=== PATIENT | female | born 1970 | race Caucasian/White ===

== ENCOUNTER 2018-12-05 22:01 | Emergency (ER) | payer MEDICAID ==
[2018-12-05] MEDS ORDERED: Acetaminophen 500 MG Tab PO ONE (22:51)
--- NOTE | 2018-12-05 22:55 | EDM.PDOC ---
ED HPI GENERAL MEDICAL PROBLEM - General Chief Complaint: Lower Extremity Injury/Pain Stated Complaint: HURT LEG Time Seen by Provider: 12/05/18 22:35 Source of Information: Reports: Patient History Limitations: Reports: No Limitations - History of Present Illness INITIAL COMMENTS - FREE TEXT/NARRATIVE: 48-year-old female who tends to get a sore leg on the right side when driving, drove lots of miles today and this evening she has a sore right groin. She laid down for a while after taking a hot bath, when she could barely get out of bed she thought she should get it checked out. She has no erythema, definite trauma , swelling, and she has not taken anything for pain. No fevers or chills, no urinary symptoms. Onset: Gradual (Over the course of today, worse this evening) Location: Reports: Lower Extremity, Right Right Upper Leg Pain Score (Numeric/FACES): 7 - Related Data Allergies Allergy/AdvReac Type Severity Reaction Status Date / Time cefuroxime [From Ceftin] Allergy Hives Verified 12/05/18 22:37 esomeprazole [From Nexium] Allergy Cannot Verified 12/05/18 22:37 Remember flaxseed Allergy Wheezing Verified 12/05/18 22:37 ibuprofen Allergy Itching Verified 12/05/18 22:37 Sulfa (Sulfonamide Allergy Hives Verified 12/05/18 22:37 Antibiotics) Home Meds: Home Meds Albuterol [Ventolin HFA] 2 puff INH Q4H PRN 08/30/18 [History] Multivitamin [Multi-Vitamin Daily] 1 tab PO DAILY 08/30/18 [History] Past Medical History HEENT History: Reports: Cataract Respiratory History: Reports: Bronchitis, Recurrent Gastrointestinal History: Reports: GERD, Helicobacter Pylori 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 History: Reports: Fracture Endocrine/Metabolic History: Reports: Obesity/BMI 30+ Dermatologic History: Reports: Cellulitis - Past Surgical History HEENT Surgical History: Reports: Cataract Surgery Female Surgical History: Reports: Tubal Ligation Social & Family History - Tobacco Use Smoking Status *Q: Current Every Day Smoker Years of Tobacco use: 23 Packs/Tins Daily: 0.5 - Caffeine Use Caffeine Use: Reports: Soda - Recreational Drug Use Recreational Drug Use: No Review of Systems - Review of Systems Review Of Systems: See Below Constitutional: Denies: Fever Respiratory: Denies: Shortness of Breath Cardiovascular: Denies: Chest Pain GI/Abdominal: Denies: Abdominal Pain 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: Reports: Leg Pain Skin: Reports: No Symptoms Neurological: Reports: No Symptoms. Denies: Paresthesia ED EXAM, GENERAL - Physical Exam Exam: See Below Exam Limited By: No Limitations General Appearance: Alert, No Apparent Distress Head: Atraumatic Respiratory/Chest: No Respiratory Distress GI/Abdominal: Non-Tender Extremities: Other (She has some pain with passive internal and external rotation of the right hip, some palpation tenderness of the right groin but no hernia, mass, or edema.) Course - Vital Signs Last Recorded V/S: Last Vital Signs Temp 95.5 F 12/05/18 22:36 Pulse 82 12/05/18 22:36 Resp 16 12/05/18 22:36 BP 118/73 12/05/18 22:36 Pulse Ox 97 12/05/18 22:36 - Orders/Labs/Meds Meds: Medications Discontinued Medications Generic Name Dose Route Start Last Admin Trade Name Brett PRN Reason Stop Dose Admin Acetaminophen 1,000 mg 12/05/18 22:51 12/05/18 23:03 Tylenol Extra Strength PO 12/05/18 22:52 Not Given ONETIME ONE - Re-Assessments/Exams Free Text/Narrative Re-Assessment/Exam: 12/05/18 22:53 Recommended anti-inflammatories but apparently she is allergic to ibuprofen and naproxen. I offered her a shot of ketorolac which she refused. She was given 1000 mg of oral Tylenol, encouraged to avoid heat to the area for the next 2 days and increase activity as tolerated. If not improving satisfactorily in 2-3 days recheck with her primary provider for physical therapy consultation. 12/06/18 06:05 Patient left before the acetaminophen could be given. Departure - Departure Time of Disposition: 23:03 Disposition: Home, Self-Care 01 Condition: Good Clinical Impression: Strain of groin Qualifiers: Encounter type: initial encounter Laterality: right Qualified Code(s): S76.211A - Strain of adductor muscle, fascia and tendon of right thigh, initial encounter - Discharge Information Instructions: Tendinitis, [id number] Referrals: Amanda Ball MD [Primary Care Provider] - Forms: ED Department Discharge Care Plan Goals: Continue with a regular dose of acetaminophen over the next 48 hours, increase activity as tolerated and recheck in 2-3 days if not improving satisfactorily.
== END 2018-12-05 23:03 | disposition home or self-care (01) ==
LOC: JP.ED 22:01
DX: S39.011A Strain of muscle, fascia and tendon of abdomen, initial encounter (principal); Z88.8 Allergy status to other drugs, medicaments and biological substances; Z88.2 Allergy status to sulfonamides; E66.9 Obesity, unspecified; F17.210 Nicotine dependence, cigarettes, uncomplicated; X50.1XXA Overexertion from prolonged static or awkward postures, initial encounter
CPT/HCPCS: 99283

== ENCOUNTER 2018-12-31 09:37 | Emergency (ER) | payer MEDICAID ==
--- NOTE | 2018-12-31 10:23 | EDM.PDOC ---
ED HPI GENERAL MEDICAL PROBLEM - General Chief Complaint: Upper Extremity Injury/Pain Stated Complaint: LEFT SHOULDER PAIN Time Seen by Provider: 12/31/18 10:05 Source of Information: Reports: Patient, RN History Limitations: Reports: No Limitations - History of Present Illness INITIAL COMMENTS - FREE TEXT/NARRATIVE: 48 yo female with 4-5 days of L arm pain worse with use of the arm. No self tx. Has not been to the clinic. Thinks its from walking her dog. 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 (see below) (none) - Related Data Allergies Allergy/AdvReac Type Severity Reaction Status Date / Time cefuroxime [From Ceftin] Allergy Hives Verified 12/31/18 10:04 esomeprazole [From Nexium] Allergy Cannot Verified 12/31/18 10:04 Remember flaxseed Allergy Wheezing Verified 12/31/18 10:04 ibuprofen Allergy Itching Verified 12/31/18 10:04 Sulfa (Sulfonamide Allergy Hives Verified 12/31/18 10:04 Antibiotics) Home Meds: Home Meds Albuterol [Ventolin HFA] 2 puff INH Q4H PRN 08/30/18 [History] Multivitamin [Multi-Vitamin Daily] 1 tab PO DAILY 08/30/18 [History] Past Medical History HEENT History: Reports: Cataract Respiratory History: Reports: Bronchitis, Recurrent Gastrointestinal History: Reports: GERD, Helicobacter 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: Reports: 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 Endocrine/Metabolic History: Reports: Obesity/BMI 30+ Dermatologic History: Reports: Cellulitis - Past Surgical History HEENT Surgical History: Reports: Cataract Surgery Female Surgical History: Reports: Tubal Ligation Social & Family History - Tobacco Use Smoking Status *Q: Former Smoker Used Tobacco, but Quit: Yes Month/Year Tobacco Last Used: 2 - Caffeine Use Caffeine Use: Reports: Soda Review of Systems - Review of Systems Review Of Systems: See Below Constitutional: Reports: No Symptoms Eyes: Reports: No Symptoms 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: Reports: Arm Pain (L arm) Skin: Reports: No Symptoms Neurological: Reports: No Symptoms ED EXAM, GENERAL - Physical Exam Exam: See Below Exam Limited By: No Limitations General Appearance: Alert, WD/WN, No Apparent Distress Back Exam: Normal Inspection Extremities: Normal Inspection, Normal Range of Motion, No Pedal Edema, Arm Pain (L lateral arm, at bottom of deltoid. No pain with olecranon percussion. ) . No: Pedal Edema Neurological: Alert, Oriented, CN II-XII Intact, Normal Cognition, No Motor/ Sensory Deficits Psychiatric: Normal Affect, Normal Mood Skin Exam: Warm, Dry, Intact, Normal Color, No Rash Course - Vital Signs Last Recorded V/S: Last Vital Signs Temp 36.2 C 12/31/18 10:09 Pulse 61 12/31/18 10:09 Resp 14 12/31/18 10:09 BP 123/85 12/31/18 10:09 Pulse Ox 97 12/31/18 10:09 Departure - Departure Time of Disposition: 10:25 Disposition: Home, Self-Care 01 Condition: Good Clinical Impression: Muscle strain of left upper arm Qualifiers: Encounter type: initial encounter Qualified Code(s): S46.912A - Strain of unspecified muscle, fascia and tendon at shoulder and upper arm level, left arm , initial encounter - Discharge Information *PRESCRIPTION DRUG MONITORING PROGRAM REVIEWED*: No *COPY OF PRESCRIPTION DRUG MONITORING REPORT IN PATIENT FOSTER: No Instructions: Muscle Strain, [id number] Referrals: Amanda Ball MD [Primary Care Provider] - Additional Instructions: Wear sling for support. Use your R arm for walking your dog. Take ibuprofen and/ or acetaminophen as needed for pain relief. F/U with physical therapy. If PT does not help, then see your regular doctor.
== END 2018-12-31 10:52 | disposition home or self-care (01) ==
LOC: EEVIPCON 09:37 → JP.ED 09:37
DX: S46.912A Strain of unspecified muscle, fascia and tendon at shoulder and upper arm level, left arm, initial encounter (principal); K21.9 Gastro-esophageal reflux disease without esophagitis; Z88.8 Allergy status to other drugs, medicaments and biological substances; Z79.899 Other long term (current) drug therapy; Z87.891 Personal history of nicotine dependence; X50.9XXA Other and unspecified overexertion or strenuous movements or postures, initial encounter
CPT/HCPCS: 99283

== ENCOUNTER 2019-01-14 21:31 | Emergency (ER) | payer MEDICAID ==
--- NOTE | 2019-01-14 22:29 | EDM.PDOC ---
ED HPI GENERAL MEDICAL PROBLEM - General Chief Complaint: Eye Problems Stated Complaint: LEFT EYE--BLOODSHOT Time Seen by Provider: 01/14/19 22:26 Source of Information: Reports: Patient, RN Notes Reviewed History Limitations: Reports: No Limitations - History of Present Illness INITIAL COMMENTS - FREE TEXT/NARRATIVE: 40-year-old female presents to the emergency department today with a red area to her left eye she's not sure how this happens been there for about 24 hours she thinks she may have injured herself when taking out her contacts no complaints of vision - Related Data Allergies Allergy/AdvReac Type Severity Reaction Status Date / Time cefuroxime [From Ceftin] Allergy Hives Verified 12/31/18 10:04 esomeprazole [From Nexium] Allergy Cannot Verified 12/31/18 10:04 Remember flaxseed Allergy Wheezing Verified 12/31/18 10:04 ibuprofen Allergy Itching Verified 12/31/18 10:04 stevioside [From Stevia] Allergy Wheezing Verified 01/14/19 22:09 Sulfa (Sulfonamide Allergy Hives Verified 12/31/18 10:04 Antibiotics) Home Meds: Home Meds Albuterol [Ventolin HFA] 2 puff INH Q4H PRN 08/30/18 [History] Multivitamin [Multi-Vitamin Daily] 1 tab PO DAILY 08/30/18 [History] [place]-3S/DHA/Epa/Fish Oil/D3 [Fish Oil Gummies] 2 tab PO TID 01/14/19 [History] Past Medical History HEENT History: Reports: Allergic Rhinitis, Cataract, Impaired Vision, Otitis Media Cardiovascular History: Reports: High Cholesterol Respiratory History: Reports: Bronchitis, Recurrent Gastrointestinal History: Reports: GERD, 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 History: Reports: Fracture Endocrine/Metabolic History: Reports: Obesity/BMI 30+ Dermatologic History: Reports: Cellulitis, Eczema - Infectious Disease History Infectious Disease History: Reports: Chicken Pox, Helicobacter Pylori - Past Surgical History HEENT Surgical History: Reports: Cataract Surgery Female Surgical History: Reports: Tubal Ligation Social & Family History - Tobacco Use Smoking Status *Q: Current Some Day Smoker Years of Tobacco use: 20 Packs/Tins Daily: 0.1 - Caffeine Use Caffeine Use: Reports: Soda - Recreational Drug Use Recreational Drug Use: Yes Drug Use in Last 12 Months: No ED ROS GENERAL - Review of Systems Review Of Systems: See Below Constitutional: Reports: No Symptoms HEENT: Denies: Eye Discharge, Eye Pain, Vision Change ED EXAM GENERAL W FULL EYE - Physical Exam Exam: See Below Exam Limited By: No Limitations General Appearance: Alert, WD/WN, No Apparent Distress Eye Exam: Right Eye: Normal Inspection, Left Eye: Other (Subconjunctival hemorrhage), Bilateral Eye: EOMI, PERRL Eyelids: Bilateral: Normal Appearance Conjunctiva & Sclera: Right: Normal Appearance, Left: Subconjuctival Hemorrhage Cornea Exam: Left: Examined with Flourescein, Bilateral: Normal Appearance Extraocular Movements: Bilateral: Intact Course - Vital Signs Last Recorded V/S: Last Vital Signs Temp 96.4 F 01/14/19 22:12 Pulse 63 01/14/19 22:12 Resp 16 01/14/19 22:12 BP 129/86 01/14/19 22:12 Pulse Ox 97 01/14/19 22:12 Departure - Departure Time of Disposition: 22:28 Disposition: Home, Self-Care 01 Condition: Good Clinical Impression: Subconjunctival hemorrhage of left eye - Discharge Information Referrals: Amanda Ball MD [Primary Care Provider] - Additional Instructions: Symptomatic care as needed follow-up with eye care provider in 2 weeks if no improvement - Assessment/Plan Plan: Assessment Acuity = acute Site and laterality = subconjunctival hemorrhage left Etiology = probably related to trauma Manifestations = none Location of injury = Home Lab values = none Plan Reassurance and symptomatically care follow-up with eye care provider in 2 weeks if no improvement This note was dictated using [employer] voice recognition software please call with any questions on syntax or grammar.
== END 2019-01-14 22:36 | disposition home or self-care (01) ==
LOC: JP.ED 21:31
DX: H11.32 Conjunctival hemorrhage, left eye (principal); F17.210 Nicotine dependence, cigarettes, uncomplicated; Z91.018 Allergy to other foods; Z88.6 Allergy status to analgesic agent; Z88.2 Allergy status to sulfonamides; Z98.49 Cataract extraction status, unspecified eye; Z98.51 Tubal ligation status
CPT/HCPCS: 99283

== ENCOUNTER 2019-01-26 23:25 | Emergency (ER) | payer MEDICAID ==
--- NOTE | 2019-01-27 00:04 | EDM.PDOC ---
ED HPI GENERAL MEDICAL PROBLEM - General Chief Complaint: ENT Problem Stated Complaint: SINUS ISSUE Time Seen by Provider: 01/26/19 23:59 Source of Information: Reports: Patient History Limitations: Reports: No Limitations - History of Present Illness INITIAL COMMENTS - FREE TEXT/NARRATIVE: 48-year-old female with a cough and cold for the last 3 or 4 days, developing some sinus pressure. No fevers or chills. She is concerned of a sinus infection. She is a smoker. 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 (see below) Other Treatments INTELLIGENCE MANAGER: Unknown Sinus Pain Score (Numeric/FACES): 6 - Related Data Allergies Allergy/AdvReac Type Severity Reaction Status Date / Time cefuroxime [From Ceftin] Allergy Hives Verified 01/26/19 23:45 esomeprazole [From Nexium] Allergy Cannot Verified 01/26/19 23:45 Remember flaxseed Allergy Wheezing Verified 01/26/19 23:45 ibuprofen Allergy Itching Verified 01/26/19 23:45 stevioside [From Stevia] Allergy Wheezing Verified 01/26/19 23:45 Sulfa (Sulfonamide Allergy Hives Verified 01/26/19 23:45 Antibiotics) Home Meds: Home Meds Albuterol [Ventolin HFA] 2 puff INH Q4H PRN 08/30/18 [History] Multivitamin [Multi-Vitamin Daily] 1 tab PO DAILY 08/30/18 [History] [place]-3S/DHA/Epa/Fish Oil/D3 [Fish Oil Gummies] 2 tab PO TID 01/14/19 [History] Fluticasone Propionate [Flonase Allergy Relief] 1 ml NS ASDIRECTED 01/26/19 [ History] Past Medical History HEENT History: Reports: Allergic Rhinitis, Cataract, Impaired Vision, Otitis Media Cardiovascular History: Reports: High Cholesterol Respiratory History: Reports: Bronchitis, Recurrent Gastrointestinal History: Reports: GERD, Helicobacter 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: Reports: 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 Endocrine/Metabolic History: Reports: Obesity/BMI 30+ Dermatologic History: Reports: Cellulitis, Eczema - Infectious Disease History Infectious Disease History: Reports: Chicken Pox - Past Surgical History HEENT Surgical History: Reports: Cataract Surgery Female Surgical History: Reports: Tubal Ligation Social & Family History - Tobacco Use Smoking Status *Q: Unknown Ever Smoked - Caffeine Use Caffeine Use: Reports: Coffee, Soda - Recreational Drug Use Recreational Drug Use: No ED ROS ENT - Review of Systems Review Of Systems: See Below Constitutional: Denies: Fever, Chills HEENT: Reports: Other (Ears are itching). Denies: Throat Pain Respiratory: Reports: Cough. Denies: Sputum GI/Abdominal: Denies: Nausea, Vomiting ED EXAM, ENT - Physical Exam Exam: See Below Exam Limited By: No Limitations General Appearance: Alert, No Apparent Distress Ears: Normal TMs Mouth/Throat: Normal Inspection Head: No: Facial Tenderness Respiratory/Chest: No Respiratory Distress, Lungs Clear, Other (Frequent dry cough) Course - Vital Signs Last Recorded V/S: Last Vital Signs Temp 98.1 F 01/27/19 00:16 Pulse 80 01/27/19 00:16 Resp 16 01/27/19 00:16 BP 148/83 H 01/27/19 00:16 Pulse Ox 97 01/27/19 00:16 - Re-Assessments/Exams Free Text/Narrative Re-Assessment/Exam: 01/27/19 00:05 Reassured the patient that she has a viral cold which should run its course. If she worsens she can get rechecked. Departure - Departure Time of Disposition: 00:18 Disposition: Home, Self-Care 01 Condition: Good Clinical Impression: Viral URI with cough - Discharge Information Instructions: Viral Respiratory Infection, [id number] Referrals: Amanda Ball MD [Primary Care Provider] - Forms: ED Department Discharge Care Plan Goals: Rest, fluids, and increase activity as tolerated. Recheck early next week if not improving satisfactorily.
== END 2019-01-27 00:20 | disposition home or self-care (01) ==
LOC: JP.ED 23:25
DX: J06.9 Acute upper respiratory infection, unspecified (principal); E78.00 Pure hypercholesterolemia, unspecified; Z88.8 Allergy status to other drugs, medicaments and biological substances; Z88.2 Allergy status to sulfonamides; Z79.899 Other long term (current) drug therapy
CPT/HCPCS: 99283

== ENCOUNTER 2019-02-04 22:10 | Emergency (ER) | payer MEDICAID ==
--- NOTE | 2019-02-04 22:57 | EDM.PDOC ---
ED HPI GENERAL MEDICAL PROBLEM - General Chief Complaint: ENT Problem Stated Complaint: PLUGGED EARS, CONGESTED Time Seen by Provider: 02/04/19 22:47 Source of Information: Reports: Patient, Old Records, RN Notes Reviewed History Limitations: Reports: No Limitations - History of Present Illness INITIAL COMMENTS - FREE TEXT/NARRATIVE: 40-year-old female presents emergency department day complaint of sinus congestion and pressure, she states she's been ill for about 2 weeks has tried [id number] remedies without much success was evaluated in the emergency department here approximately 2 weeks prior Face/Facial Pain Score (Numeric/FACES): 7 - Related Data Allergies Allergy/AdvReac Type Severity Reaction Status Date / Time cefuroxime [From Ceftin] Allergy Hives Verified 02/04/19 22:32 esomeprazole [From Nexium] Allergy Cannot Verified 02/04/19 22:32 Remember flaxseed Allergy Wheezing Verified 02/04/19 22:32 ibuprofen Allergy Itching Verified 02/04/19 22:32 stevioside [From Stevia] Allergy Wheezing Verified 02/04/19 22:32 Sulfa (Sulfonamide Allergy Hives Verified 02/04/19 22:32 Antibiotics) Home Meds: Home Meds Albuterol [Ventolin HFA] 2 puff INH Q4H PRN 08/30/18 [History] Multivitamin [Multi-Vitamin Daily] 1 tab PO DAILY 08/30/18 [History] [place]-3S/DHA/Epa/Fish Oil/D3 [Fish Oil Gummies] 2 tab PO TID 01/14/19 [History] Fluticasone Propionate [Flonase Allergy Relief] 1 ml NS ASDIRECTED 01/26/19 [ History] Clindamycin HCl 300 mg PO TID #21 capsule 02/04/19 [Rx] Past Medical History HEENT History: Reports: Allergic Rhinitis, Cataract, Impaired Vision, Otitis Media Cardiovascular History: Reports: High Cholesterol Respiratory History: Reports: Bronchitis, Recurrent Gastrointestinal History: Reports: GERD, Helicobacter Pylori 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 Endocrine/Metabolic History: Reports: Obesity/BMI 30+ Dermatologic History: Reports: Cellulitis, Eczema - Infectious Disease History Infectious Disease History: Reports: Chicken Pox - Past Surgical History HEENT Surgical History: Reports: Cataract Surgery Female Surgical History: Reports: Tubal Ligation Social & Family History - Tobacco Use Smoking Status *Q: Never Smoker Second Hand Smoke Exposure: No - Caffeine Use Caffeine Use: Reports: Coffee, Soda - Recreational Drug Use Recreational Drug Use: No ED ROS ENT - Review of Systems Review Of Systems: See Below Constitutional: Reports: No Symptoms HEENT: Reports: Sinus Problem ED EXAM, ENT - Physical Exam Exam: See Below Exam Limited By: No Limitations General Appearance: Alert, WD/WN, No Apparent Distress Eye Exam: Bilateral Eye: Normal Inspection Ears: Normal External Exam, Normal Canal, Hearing Grossly Normal, Normal TMs Nose: Normal Inspection, Normal Mucousa, No Blood Mouth/Throat: Normal Inspection, Normal Gums, Normal Lips, Normal Oropharynx, Normal Teeth Head: Normocephalic, Sinus Tenderness Neck: Normal Inspection, Supple, Non-Tender, Full Range of Motion Respiratory/Chest: No Respiratory Distress, Lungs Clear, Normal Breath Sounds, No Accessory Muscle Use, Chest Non-Tender Cardiovascular: Regular Rate, Rhythm, No Murmur Course - Vital Signs Last Recorded V/S: Last Vital Signs Temp 96.8 F 02/04/19 22:37 Pulse 74 02/04/19 22:37 Resp 16 02/04/19 22:37 BP 121/70 02/04/19 22:37 Pulse Ox 95 02/04/19 22:37 Departure - Departure Time of Disposition: 22:56 Disposition: Home, Self-Care 01 Condition: Fair Clinical Impression: Frontal sinusitis Qualifiers: Chronicity: acute Recurrence: non-recurrent Qualified Code(s): J01.10 - Acute frontal sinusitis, unspecified - Discharge Information Prescriptions: Clindamycin HCl 300 mg PO TID #21 capsule Referrals: Laura Henao MD [Primary Care Provider] - Additional Instructions: Take full course of antibiotics, Please followup with your primary care provider in 3-5 days if not better, please call return to the emergency department with worsening of symptoms. - Assessment/Plan Plan: Assessment Acuity = acute Site and laterality = frontal sinusitis Etiology = probable bacterial cause Manifestations = headache Location of injury = Home Lab values = none Plan Elected treat clindamycin 300 mg by mouth 3 times a day 7 days follow-up with primary care in 3-5 days if no improvement This note was dictated using [employer] voice recognition software please call with any questions on syntax or grammar.
== END 2019-02-04 23:02 | disposition home or self-care (01) ==
LOC: JP.ED 22:10
DX: J01.10 Acute frontal sinusitis, unspecified (principal); K21.9 Gastro-esophageal reflux disease without esophagitis; E78.00 Pure hypercholesterolemia, unspecified; Z79.899 Other long term (current) drug therapy; Z88.8 Allergy status to other drugs, medicaments and biological substances; Z88.2 Allergy status to sulfonamides; Z88.1 Allergy status to other antibiotic agents; Z91.018 Allergy to other foods
CPT/HCPCS: 99283

== ENCOUNTER 2019-12-27 16:09 | Emergency (ER) | payer MEDICAID ==
--- NOTE | 2019-12-27 17:26 | EDM.PDOC ---
ED HPI GENERAL MEDICAL PROBLEM - General Chief Complaint: ENT Problem Stated Complaint: RESPIRATORY ILLNESS Time Seen by Provider: 12/27/19 17:15 Source of Information: Reports: Patient History Limitations: Reports: No Limitations - History of Present Illness INITIAL COMMENTS - FREE TEXT/NARRATIVE: 49-year-old female who recently moved to [facility], is concerned that she has a cough and it feels like her ears are pulling when she coughs, she also has a scratchy throat. No shortness of breath or fever. She is a restricted patient to [facility] but is moving to the area and getting her paperwork changed. Onset: Gradual Duration: Day(s): (Symptoms for 2 to 3 days) Associated Symptoms: Reports: Cough, Other (Scratchy throat nasal congestion and mild ear discomfort). Denies: Fever/Chills, Headaches, Loss of Appetite, Shortness of Breath - Related Data Allergies Allergy/AdvReac Type Severity Reaction Status Date / Time cefuroxime [From Ceftin] Allergy Hives Verified 12/27/19 17:03 esomeprazole [From Nexium] Allergy Cannot Verified 12/27/19 17:03 Remember flaxseed Allergy Wheezing Verified 12/27/19 17:03 ibuprofen Allergy Itching Verified 12/27/19 17:03 stevioside [From Stevia] Allergy Wheezing Verified 12/27/19 17:03 Sulfa (Sulfonamide Allergy Hives Verified 12/27/19 17:03 Antibiotics) Home Meds: Home Meds Albuterol [Ventolin HFA] 2 puff INH Q4H PRN 08/30/18 [History] Multivitamin [Multi-Vitamin Daily] 1 tab PO DAILY 08/30/18 [History] [place]ias-3S/DHA/Epa/Fish Oil/D3 [Fish Oil Gummies] 2 tab PO TID 01/14/19 [History] Fluticasone Propionate [Flonase Allergy Relief] 1 ml NS ASDIRECTED 01/26/19 [ History] Past Medical History HEENT History: Reports: Allergic Rhinitis, Cataract, Impaired Vision, Otitis Media Cardiovascular History: Reports: High Cholesterol Respiratory History: Reports: Bronchitis, Recurrent Gastrointestinal History: Reports: GERD, Helicobacter Pylori Genitourinary History: Reports: None 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 History: Reports: Fracture Endocrine/Metabolic History: Reports: Obesity/BMI 30+ Dermatologic History: Reports: Cellulitis, Eczema - Infectious Disease History Infectious Disease History: Reports: Chicken Pox - Past Surgical History Head Surgeries/Procedures: Reports: None HEENT Surgical History: Reports: Cataract Surgery Cardiovascular Surgical History: Reports: None Respiratory Surgical History: Reports: None GI Surgical History: Reports: None Female Surgical History: Reports: Tubal Ligation Endocrine Surgical History: Reports: None 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 Surgical History: Reports: None Dermatological Surgical History: Reports: None Social & Family History - Tobacco Use Smoking Status *Q: Current Every Day Smoker Years of Tobacco use: 26 Packs/Tins Daily: 0.5 Used Tobacco, but Quit: No Second Hand Smoke Exposure: No - Caffeine Use Caffeine Use: Reports: Coffee - Recreational Drug Use Recreational Drug Use: No ED ROS GENERAL - Review of Systems Review Of Systems: See Below Constitutional: Reports: Malaise. Denies: Fever, Chills HEENT: Reports: Ear Pain, Throat Pain Respiratory: Reports: Cough. Denies: Shortness of Breath GI/Abdominal: Denies: Abdominal Pain Skin: Reports: No Symptoms Neurological: Denies: Headache ED EXAM, GENERAL - Physical Exam Exam: See Below Exam Limited By: No Limitations General Appearance: Alert, No Apparent Distress Eye Exam: Bilateral Eye: Normal Inspection Ears: Normal TMs Throat/Mouth: Normal Inspection Respiratory/Chest: No Respiratory Distress, Lungs Clear Neurological: Alert, Oriented Psychiatric: Normal Affect, Normal Mood Course - Vital Signs Last Recorded V/S: Last Vital Signs Temp 96.9 F 12/27/19 17:06 Pulse 79 12/27/19 17:06 Resp 18 12/27/19 17:06 BP 142/75 H 12/27/19 17:06 Pulse Ox 97 12/27/19 17:06 - Re-Assessments/Exams Free Text/Narrative Re-Assessment/Exam: 12/27/19 17:24 This patient's vitals are normal and she has no objective signs of illness. She now thinks it may be that they are keeping the room too hot at the motel and it is drying her throat out at night which is a possibility. No treatment is needed. Departure - Departure Time of Disposition: 17:32 Disposition: Home, Self-Care 01 Clinical Impression: URI with cough and congestion - Discharge Information Instructions: Cough, Adult, [id number] Referrals: PCP,None [Primary Care Provider] - Forms: ED Department Discharge Care Plan Goals: Continue to decrease smoking, good job. Stay hydrated, and return if you are worsening such as difficulty breathing or high fever. Sepsis Event Note - Evaluation Sepsis Screening Result: No Definite Risk - Focused Exam Date Exam was Performed: 12/28/19 Time Exam was Performed: 07:24
== END 2019-12-27 17:32 | disposition home or self-care (01) ==
LOC: JP.ED 16:09
CPT/HCPCS: 99283

== ENCOUNTER 2020-01-03 22:26 | Emergency (ER) | payer MEDICAID ==
--- NOTE | 2020-01-03 22:57 | EDM.PDOC ---
ED HPI GENERAL MEDICAL PROBLEM - General Chief Complaint: General Stated Complaint: COUGH Time Seen by Provider: 01/03/20 22:40 Source of Information: Reports: Patient History Limitations: Reports: No Limitations - History of Present Illness INITIAL COMMENTS - FREE TEXT/NARRATIVE: 49-year-old female with upper respiratory symptoms and now coughing for the past 2 days. She feels like something is draining from her left ear into her throat. She was in the clinic today, they recommended Zyrtec and Sudafed which she took and now she is coughing worse so she wants to be seen. No fevers or chills, cough is nonproductive, she has clear rhinorrhea. She is coughing so hard she "threw up". Onset: Gradual Duration: Day(s): (2 to 3 days) Associated Symptoms: Reports: Chest Pain (With coughing), Cough, Shortness of Breath. Denies: Fever/Chills, Headaches - Related Data Allergies Allergy/AdvReac Type Severity Reaction Status Date / Time cefuroxime [From Ceftin] Allergy Hives Verified 12/27/19 17:03 esomeprazole [From Nexium] Allergy Cannot Verified 12/27/19 17:03 Remember flaxseed Allergy Wheezing Verified 12/27/19 17:03 ibuprofen Allergy Itching Verified 12/27/19 17:03 stevioside [From Stevia] Allergy Wheezing Verified 12/27/19 17:03 Sulfa (Sulfonamide Allergy Hives Verified 12/27/19 17:03 Antibiotics) Home Meds: Home Meds Albuterol [Ventolin HFA] 2 puff INH Q4H PRN 08/30/18 [History] Multivitamin [Multi-Vitamin Daily] 1 tab PO DAILY 08/30/18 [History] [place]-3S/DHA/Epa/Fish Oil/D3 [Fish Oil Gummies] 2 tab PO TID 01/14/19 [History] Fluticasone Propionate [Flonase Allergy Relief] 1 ml NS ASDIRECTED 01/26/19 [ History] Cetirizine [ZyrTEC] 10 mg PO ASDIRECTED 01/03/20 [History] Past Medical History HEENT History: Reports: Allergic Rhinitis, Cataract, Impaired Vision, Otitis Media Cardiovascular History: Reports: High Cholesterol Respiratory History: Reports: Bronchitis, Recurrent Gastrointestinal History: Reports: GERD, Helicobacter Pylori Genitourinary History: Reports: 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 Endocrine/Metabolic History: Reports: Obesity/BMI 30+ Dermatologic History: Reports: Cellulitis, Eczema - Infectious Disease History Infectious Disease History: Reports: Chicken Pox - Past Surgical History Head Surgeries/Procedures: Reports: None HEENT Surgical History: Reports: Cataract Surgery Cardiovascular Surgical History: Reports: None Respiratory Surgical History: Reports: None GI Surgical History: Reports: None Female Surgical History: Reports: Tubal Ligation Endocrine Surgical History: Reports: None 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 Surgical History: Reports: None Dermatological Surgical History: Reports: None Social & Family History - Tobacco Use Used Tobacco, but Quit: Yes Month/Year Tobacco Last Used: 12/2019 - Caffeine Use Caffeine Use: Reports: Soda - Recreational Drug Use Recreational Drug Use: No ED ROS GENERAL - Review of Systems Review Of Systems: See Below Constitutional: Reports: Malaise. Denies: Fever, Chills HEENT: Reports: Ear Pain, Rhinitis, Sinus Problem Respiratory: Reports: Shortness of Breath, Cough. Denies: Wheezing, Sputum Cardiovascular: Reports: Chest Pain (With coughing) GI/Abdominal: Reports: Vomiting (From coughing) Skin: Reports: No Symptoms Neurological: Reports: No Symptoms ED EXAM, GENERAL - Physical Exam Exam: See Below Exam Limited By: No Limitations General Appearance: Alert, No Apparent Distress Ears: Normal TMs Throat/Mouth: Normal Inspection Head: Atraumatic Respiratory/Chest: No Respiratory Distress, Lungs Clear, Other (She does seem to have overall decreased breath sounds but no wheezing rhonchi or rales) Cardiovascular: Regular Rate, Rhythm Neurological: Alert, Oriented Psychiatric: Normal Affect, Normal Mood Skin Exam: Warm, Dry Course - Vital Signs Last Recorded V/S: Last Vital Signs Temp 97.4 F 01/03/20 22:45 Pulse 71 01/03/20 22:45 Resp 16 01/03/20 22:45 BP 133/71 01/03/20 22:45 Pulse Ox 96 01/03/20 22:45 - Orders/Labs/Meds Orders: Active Orders 24 hr Category Date Time Status RT Aerosol Therapy [RC] ASDIRECTED Care 01/03/20 23:04 Active Meds: Medications Discontinued Medications Generic Name Dose Route Start Last Admin Trade Name Freq PRN Reason Stop Dose Admin Albuterol/Ipratropium 3 ml 01/03/20 23:04 01/03/20 23:08 Duoneb 3.0-0.5 Mg/3 Ml NEB 01/03/20 23:05 3 ml ONETIME ONE Administration - Re-Assessments/Exams Free Text/Narrative Re-Assessment/Exam: 01/03/20 22:56 Influenza antigens were obtained. 01/03/20 23:28 Patient was also given a DuoNeb which increased breath sounds and decreased her coughing, still no wheezing was heard. She was encouraged to use her albuterol inhaler every 4-6 hours and continue with cold medicines. Departure - Departure Time of Disposition: 23:50 Disposition: Home, Self-Care 01 Clinical Impression: Viral URI with cough - Discharge Information Instructions: Viral Illness, Adult Referrals: PCP,None [Primary Care Provider] - Forms: ED Department Discharge Care Plan Goals: Use your inhaler several times daily for coughing or shortness of breath, and continue with cold medicines as needed. Increase activity as tolerated and recheck next week if not improving satisfactorily. Sepsis Event Note - Evaluation Sepsis Screening Result: No Definite Risk - Focused Exam Vital Signs: Vital Signs Temp Pulse Resp BP Pulse Ox 01/03/20 22:45 97.4 F 71 16 133/71 96 01/03/20 22:41 97.4 F 71 16 133/71 96 Date Exam was Performed: 01/04/20 Time Exam was Performed: 02:43 - My Orders Last 24 Hours: My Active Orders 01/03/20 23:04 RT Aerosol Therapy [RC] ASDIRECTED - Assessment/Plan Last 24 Hours: My Active Orders 01/03/20 23:04 RT Aerosol Therapy [RC] ASDIRECTED
[2020-01-03] MEDS ORDERED: Albuterol/Ipratropium 3.0-0.5 MG/3 ML Neb Soln NEB ONE (23:04)
== END 2020-01-03 23:35 | disposition home or self-care (01) ==
LOC: JP.ED 22:26
DX: J06.9 Acute upper respiratory infection, unspecified (principal); Z88.1 Allergy status to other antibiotic agents; Z88.2 Allergy status to sulfonamides; Z88.6 Allergy status to analgesic agent; Z88.8 Allergy status to other drugs, medicaments and biological substances; Z91.018 Allergy to other foods
CPT/HCPCS: 87804; 87804-59; 94640; 99283-25; J7620-GY

== ENCOUNTER 2020-01-21 02:42 | Emergency (ER) | payer MEDICAID ==
[2020-01-21] MEDS ORDERED: Codeine/guaiFENesin 100mg-10 MG/5 ML Syrup 10 ML Cup PO ONE (03:21)
--- NOTE | 2020-01-21 03:26 | EDM.PDOC ---
ED HPI GENERAL MEDICAL PROBLEM - General Chief Complaint: ENT Problem Stated Complaint: HARD TIME BREATHING Time Seen by Provider: 01/21/20 03:11 Source of Information: Reports: Patient, RN Notes Reviewed History Limitations: Reports: No Limitations - History of Present Illness INITIAL COMMENTS - FREE TEXT/NARRATIVE: 49-year-old female presents emergency department today complaint of sinus congestion and cough she states is been ill for between a week or 2 it has progressively gotten worse she was evaluated in the ED while back did have a neb treatment at that time. She states it has progressed she has lots of sinus congestion postnasal drip and a cough that makes her short of breath - Related Data Allergies Allergy/AdvReac Type Severity Reaction Status Date / Time cefuroxime [From Ceftin] Allergy Hives Verified 01/21/20 03:25 esomeprazole [From Nexium] Allergy Cannot Verified 01/21/20 03:25 Remember flaxseed Allergy Wheezing Verified 01/21/20 03:25 ibuprofen Allergy Itching Verified 01/21/20 03:25 stevioside [From Stevia] Allergy Wheezing Verified 01/21/20 03:25 Sulfa (Sulfonamide Allergy Hives Verified 01/21/20 03:25 Antibiotics) Home Meds: Home Meds Albuterol [Ventolin HFA] 2 puff INH Q4H PRN 08/30/18 [History] Multivitamin [Multi-Vitamin Daily] 1 tab PO DAILY 08/30/18 [History] [place]-3S/DHA/Epa/Fish Oil/D3 [Fish Oil Gummies] 2 tab PO TID 01/14/19 [History] Fluticasone Propionate [Flonase Allergy Relief] 1 ml NS ASDIRECTED 01/26/19 [ History] Cetirizine [ZyrTEC] 10 mg PO ASDIRECTED 01/03/20 [History] Past Medical History HEENT History: Reports: Allergic Rhinitis, Cataract, Impaired Vision, Otitis Media Cardiovascular History: Reports: High Cholesterol Respiratory History: Reports: Bronchitis, Recurrent Gastrointestinal History: Reports: GERD, Helicobacter Pylori Genitourinary History: Reports: None 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 Endocrine/Metabolic History: Reports: Obesity/BMI 30+ Dermatologic History: Reports: Cellulitis, Eczema - Infectious Disease History Infectious Disease History: Reports: Chicken Pox - Past Surgical History Head Surgeries/Procedures: Reports: None HEENT Surgical History: Reports: Cataract Surgery Cardiovascular Surgical History: Reports: None Respiratory Surgical History: Reports: None GI Surgical History: Reports: None Female Surgical History: Reports: Tubal Ligation Endocrine Surgical History: Reports: None 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 Surgical History: Reports: None Dermatological Surgical History: Reports: None Social & Family History - Caffeine Use Caffeine Use: Reports: Soda ED ROS ENT - Review of Systems Review Of Systems: See Below Constitutional: Reports: No Symptoms HEENT: Reports: Sinus Problem Respiratory: Reports: Shortness of Breath, Cough Cardiovascular: Reports: No Symptoms GI/Abdominal: Reports: No Symptoms ED EXAM, ENT - Physical Exam Exam: See Below Exam Limited By: No Limitations General Appearance: Alert, WD/WN, No Apparent Distress Eye Exam: Bilateral Eye: Normal Inspection, PERRL Ears: Normal External Exam, Normal Canal, Hearing Grossly Normal, Normal TMs Nose: Normal Inspection, Normal Mucousa, No Blood Mouth/Throat: Normal Inspection, Normal Gums, Normal Lips, Normal Oropharynx, Normal Teeth Head: Atraumatic, Sinus Tenderness Neck: Normal Inspection, Supple, Non-Tender, Full Range of Motion Respiratory/Chest: No Respiratory Distress, Lungs Clear, Normal Breath Sounds, No Accessory Muscle Use, Chest Non-Tender Cardiovascular: Regular Rate, Rhythm, No Murmur Course - Vital Signs Last Recorded V/S: Last Vital Signs Temp 97.4 F 01/21/20 03:14 Pulse 78 01/21/20 03:14 Resp 16 01/21/20 03:14 BP 138/70 01/21/20 03:14 Pulse Ox 98 01/21/20 03:14 - Orders/Labs/Meds Meds: Medications Discontinued Medications Generic Name Dose Route Start Last Admin Trade Name Freq PRN Reason Stop Dose Admin Guaifenesin/Codeine Phosphate 10 ml 01/21/20 03:21 Robitussin Ac PO 01/21/20 03:22 ONETIME ONE Departure - Departure Time of Disposition: 03:24 Disposition: Home, Self-Care 01 Condition: Fair Clinical Impression: Sinusitis nasal Qualifiers: Sinusitis location: maxillary Chronicity: acute Recurrence: non-recurrent Qualified Code(s): J01.00 - Acute maxillary sinusitis, unspecified - Discharge Information Instructions: Sinusitis, Adult, [id number] Referrals: PCP,None [Primary Care Provider] - Forms: ED Department Discharge Additional Instructions: Take full course of antibiotics, use Robitussin-AC as needed help suppress the cough, use the albuterol as needed to help with cough and shortness of breath, please followup with your primary care provider in 3-5 days if not better, please call return to the emergency department with worsening of symptoms. Sepsis Event Note - Focused Exam Vital Signs: Vital Signs Temp Pulse Resp BP Pulse Ox 01/21/20 03:14 97.4 F 78 16 138/70 98 Date Exam was Performed: 01/21/20 Time Exam was Performed: 03:26 - Assessment/Plan Plan: Assessment Acuity = acute Site and laterality = sinusitis Etiology = probable bacterial cause Manifestations = cough, postnasal drip Location of injury = Home Lab values = none Plan Because of her multiple allergy list prescription written for azithromycin 5- day course, Robitussin-AC 10 mL p.o. every 4-6 hours as needed 120 mL bottle and albuterol inhaler 2 puffs every 1-2 hours as needed follow-up primary care 3 to 5 days if not better This note was dictated using [employer] voice recognition software please call with any questions on syntax or grammar.
[2020-01-21] MEDS ORDERED: Albuterol/Ipratropium 3.0-0.5 MG/3 ML Neb Soln NEB ONE (04:17)
== END 2020-01-21 04:41 | disposition home or self-care (01) ==
LOC: JP.ED 02:42
DX: J01.00 Acute maxillary sinusitis, unspecified (principal); E78.00 Pure hypercholesterolemia, unspecified; E66.9 Obesity, unspecified; Z68.38 Body mass index [BMI] 38.0-38.9, adult; Z88.8 Allergy status to other drugs, medicaments and biological substances; Z88.2 Allergy status to sulfonamides; Z79.899 Other long term (current) drug therapy
CPT/HCPCS: 94640; 99283; A9270; J7620-GY

== ENCOUNTER 2020-04-22 22:33 | Emergency (ER) | payer MEDICAID ==
[2020-04-22] MEDS ORDERED: Albuterol 8 GM Inhaler INH ONE (23:09)
--- NOTE | 2020-04-22 23:13 | EDM.PDOC ---
ED HPI GENERAL MEDICAL PROBLEM - General Chief Complaint: Respiratory Problem Stated Complaint: SINUS DRAINAGE Time Seen by Provider: 04/22/20 23:02 Source of Information: Reports: Patient, RN Notes Reviewed History Limitations: Reports: No Limitations - History of Present Illness INITIAL COMMENTS - FREE TEXT/NARRATIVE: 49-year-old female presents emergency department today with complaint of sinus congestion postnasal drip tightness in her chest she does have a known history of asthma she is currently out of her albuterol inhaler, she believes the trigger was tobacco smoke which she was exposed to earlier today - Related Data Allergies Allergy/AdvReac Type Severity Reaction Status Date / Time cefuroxime [From Ceftin] Allergy Hives Verified 01/21/20 03:25 esomeprazole [From Nexium] Allergy Cannot Verified 01/21/20 03:25 Remember flaxseed Allergy Wheezing Verified 01/21/20 03:25 ibuprofen Allergy Itching Verified 01/21/20 03:25 stevioside [From Stevia] Allergy Wheezing Verified 01/21/20 03:25 Sulfa (Sulfonamide Allergy Hives Verified 01/21/20 03:25 Antibiotics) Home Meds: Home Meds Albuterol [Ventolin HFA] 2 puff INH Q4H PRN 08/30/18 [History] Multivitamin [Multi-Vitamin Daily] 1 tab PO DAILY 08/30/18 [History] [place]-3S/DHA/Epa/Fish Oil/D3 [Fish Oil Gummies] 2 tab PO TID 01/14/19 [History] Fluticasone Propionate [Flonase Allergy Relief] 1 ml NS ASDIRECTED 01/26/19 [ History] Cetirizine [ZyrTEC] 10 mg PO ASDIRECTED 01/03/20 [History] Past Medical History HEENT History: Reports: Allergic Rhinitis, Cataract, Impaired Vision, Otitis Media Cardiovascular History: Reports: High Cholesterol Respiratory History: Reports: Asthma, Bronchitis, Recurrent Gastrointestinal History: Reports: GERD, Helicobacter Pylori 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 Endocrine/Metabolic History: Reports: Obesity/BMI 30+ Dermatologic History: Reports: Cellulitis, Eczema - Infectious Disease History Infectious Disease History: Reports: Chicken Pox - Past Surgical History Head Surgeries/Procedures: Reports: None HEENT Surgical History: Reports: Cataract Surgery Cardiovascular Surgical History: Reports: None Respiratory Surgical History: Reports: None GI Surgical History: Reports: None Female Surgical History: Reports: Tubal Ligation Endocrine Surgical History: Reports: None 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 Surgical History: Reports: None Dermatological Surgical History: Reports: None Social & Family History - Family History Family Medical History: Noncontributory - Tobacco Use Smoking Status *Q: Former Smoker Used Tobacco, but Quit: Yes Month/Year Tobacco Last Used: long time ago - Caffeine Use Caffeine Use: Reports: Coffee, Soda, Tea - Recreational Drug Use Recreational Drug Use: No ED ROS GENERAL - Review of Systems Review Of Systems: See Below Constitutional: Reports: No Symptoms HEENT: Reports: No Symptoms Respiratory: Reports: Shortness of Breath, Cough. Denies: Wheezing, Sputum Cardiovascular: Reports: Dyspnea on Exertion GI/Abdominal: Reports: No Symptoms ED EXAM, GENERAL - Physical Exam Exam: See Below Exam Limited By: No Limitations General Appearance: Alert, WD/WN, No Apparent Distress Throat/Mouth: Normal Inspection, Normal Lips, Normal Teeth, Normal Gums, Normal Oropharynx, Normal Voice, No Airway Compromise Head: Atraumatic, Normocephalic Neck: Normal Inspection, Supple, Non-Tender, Full Range of Motion Respiratory/Chest: No Respiratory Distress, Lungs Clear, Normal Breath Sounds, No Accessory Muscle Use, Chest Non-Tender Cardiovascular: Regular Rate, Rhythm, No Murmur Course - Vital Signs Last Recorded V/S: Last Vital Signs Temp 96.7 F L 04/22/20 22:56 Pulse 77 04/22/20 22:56 Resp 16 04/22/20 22:56 BP 128/86 04/22/20 22:56 Pulse Ox 96 04/22/20 22:56 - Orders/Labs/Meds Orders: Active Orders 24 hr Category Date Time Status RT Post Treatment Assessment [RC] Click to Edit Care 04/22/20 23:09 Ordered Albuterol [Ventolin HFA] Med 04/22/20 23:09 Once 1 gm INH ONETIME ONE Departure - Departure Time of Disposition: 23:12 Disposition: Home, Self-Care 01 Condition: Fair Clinical Impression: Mild intermittent asthma Qualifiers: Asthma complication type: uncomplicated Qualified Code(s): J45.20 - Mild intermittent asthma, uncomplicated - Discharge Information Instructions: Asthma, Adult Referrals: Madalyn Talbert PA-C [Primary Care Provider] - Additional Instructions: Try the albuterol inhaler as needed for shortness of breath and cough, recommend pseudoephedrine to help dry your nasal drip up, continue to use your Flonase follow-up with your primary care in the next 3 to 5 days for reevaluation, call return to the emergency department worsening of symptoms Sepsis Event Note - Evaluation Sepsis Screening Result: No Definite Risk - Focused Exam Vital Signs: Vital Signs Temp Pulse Resp BP Pulse Ox 04/22/20 22:56 96.7 F L 77 16 128/86 96 04/22/20 22:50 96.7 F L 77 16 128/86 96 Date Exam was Performed: 04/22/20 Time Exam was Performed: 23:09 - My Orders Last 24 Hours: My Active Orders 04/22/20 23:09 RT Post Treatment Assessment [RC] Click to Edit Albuterol [Ventolin HFA] 1 gm INH ONETIME ONE - Assessment/Plan Last 24 Hours: My Active Orders 04/22/20 23:09 RT Post Treatment Assessment [RC] Click to Edit Albuterol [Ventolin HFA] 1 gm INH ONETIME ONE Plan: Assessment Acuity = acute Site and laterality = mild intermittent asthma Etiology = irritant reactive secondary to tobacco smoke Manifestations = cough Location of injury = Home Lab values = none Plan She is provide an albuterol inhaler in the emergency department she has Zyrtec- D at home as well as Flonase have her follow-up primary care 3 to 5 days if no improvement This note was dictated using [employer] voice recognition software please call with any questions on syntax or grammar.
== END 2020-04-22 23:40 | disposition home or self-care (01) ==
LOC: JP.ED 22:33
DX: J45.20 Mild intermittent asthma, uncomplicated (principal); E78.00 Pure hypercholesterolemia, unspecified; E66.9 Obesity, unspecified; Z68.37 Body mass index [BMI] 37.0-37.9, adult; Z87.891 Personal history of nicotine dependence; Z88.8 Allergy status to other drugs, medicaments and biological substances; Z88.2 Allergy status to sulfonamides; Z91.018 Allergy to other foods; Z79.899 Other long term (current) drug therapy
CPT/HCPCS: 94640; 99284; A9270

== ENCOUNTER 2020-05-07 23:23 | Emergency (ER) | payer MEDICAID ==
--- NOTE | 2020-05-08 00:08 | EDM.PDOC ---
ED HPI GENERAL MEDICAL PROBLEM - General Chief Complaint: Respiratory Problem Stated Complaint: MED CHECK? Time Seen by Provider: 05/08/20 00:05 Source of Information: Reports: Patient History Limitations: Reports: No Limitations - History of Present Illness INITIAL COMMENTS - FREE TEXT/NARRATIVE: 49-year-old female with a persistent tightness in her chest and cough which is fairly chronic, waxes and wanes for the past several weeks but tonight she was trying to use her albuterol and Xopenex and did not feel it was working. She tried some steam and honey tea and came into the emergency room because she just "could not stop coughing". No fevers or chills, no productive sputum, she does have persistent and significant postnasal sinus drip. Onset: Unknown/Unsure Duration: Waxing/Waning Associated Symptoms: Reports: Cough, Malaise, Shortness of Breath. 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: Other (see below) (Xopenex, albuterol, antihistamines) denies pain Pain Score (Numeric/FACES): 0 - Related Data Allergies Allergy/AdvReac Type Severity Reaction Status Date / Time cefuroxime [From Ceftin] Allergy Hives Verified 05/08/20 00:06 esomeprazole [From Nexium] Allergy Cannot Verified 05/08/20 00:06 Remember flaxseed Allergy Wheezing Verified 05/08/20 00:06 ibuprofen Allergy Itching Verified 05/08/20 00:06 stevioside [From Stevia] Allergy Wheezing Verified 05/08/20 00:06 Sulfa (Sulfonamide Allergy Hives Verified 05/08/20 00:06 Antibiotics) Home Meds: Home Meds Albuterol [Ventolin HFA] 2 puff INH Q4H PRN 08/30/18 [History] Multivitamin [Multi-Vitamin Daily] 1 tab PO DAILY 08/30/18 [History] [place]-3S/DHA/Epa/Fish Oil/D3 [Fish Oil Gummies] 2 tab PO TID 01/14/19 [History] Fluticasone Propionate [Flonase Allergy Relief] 1 ml NS ASDIRECTED 01/26/19 [History] Cetirizine [ZyrTEC] 10 mg PO ASDIRECTED 01/03/20 [History] Past Medical History HEENT History: Reports: Allergic Rhinitis, Cataract, Impaired Vision, Otitis Media Cardiovascular History: Reports: High Cholesterol Respiratory History: Reports: Asthma, Bronchitis, Recurrent Gastrointestinal History: Reports: GERD, Helicobacter Pylori Genitourinary History: Reports: None 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: 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 History: Reports: Fracture Endocrine/Metabolic History: Reports: Obesity/BMI 30+ Dermatologic History: Reports: Cellulitis, Eczema - Infectious Disease History Infectious Disease History: Reports: Chicken Pox - Past Surgical History Head Surgeries/Procedures: Reports: None HEENT Surgical History: Reports: Cataract Surgery Cardiovascular Surgical History: Reports: None Respiratory Surgical History: Reports: None GI Surgical History: Reports: None Female Surgical History: Reports: Tubal Ligation Endocrine Surgical History: Reports: None 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 Surgical History: Reports: None Dermatological Surgical History: Reports: None Social & Family History - Family History Family Medical History: Noncontributory - Caffeine Use Caffeine Use: Reports: Coffee, Soda, Tea ED ROS GENERAL - Review of Systems Review Of Systems: See Below Constitutional: Denies: Fever, Chills HEENT: Reports: Rhinitis. Denies: Throat Pain Respiratory: Reports: Shortness of Breath, Cough. Denies: Sputum Cardiovascular: Denies: Chest Pain GI/Abdominal: Denies: Nausea, Vomiting Skin: Reports: No Symptoms Neurological: Denies: Headache ED EXAM, GENERAL - Physical Exam Exam: See Below Exam Limited By: No Limitations General Appearance: Alert, No Apparent Distress Throat/Mouth: Normal Inspection Head: Atraumatic Respiratory/Chest: No Respiratory Distress, Lungs Clear, Decreased Breath Sounds (Patient has clear lungs but they are decreased bilaterally, similar to her last presentation) Cardiovascular: Regular Rate, Rhythm Neurological: Alert, Oriented Psychiatric: Normal Affect, Normal Mood Course - Vital Signs Last Recorded V/S: Last Vital Signs Temp 205.5 F H 05/08/20 00:07 Pulse 77 05/08/20 00:07 Resp 18 05/08/20 00:07 BP 125/85 05/08/20 00:07 Pulse Ox 92 L 05/08/20 00:07 - Orders/Labs/Meds Orders: Active Orders 24 hr Category Date Time Status RT Aerosol Therapy [RC] ASDIRECTED Care 05/08/20 00:22 Active Meds: Medications Discontinued Medications Generic Name Dose Route Start Last Admin Trade Name Freq PRN Reason Stop Dose Admin Albuterol/Ipratropium 3 ml 05/08/20 00:21 05/08/20 00:30 Duoneb 3.0-0.5 Mg/3 Ml NEB 05/08/20 00:22 3 ml ONETIME ONE Administration Methylprednisolone Sodium Succinate 125 mg 05/08/20 00:22 05/08/20 00:30 Solu-Medrol IM 05/08/20 00:23 125 mg ONETIME ONE Administration - Re-Assessments/Exams Free Text/Narrative Re-Assessment/Exam: 05/08/20 00:26 In review of her records, a DuoNeb improved her objectively and subjectively last visit despite clears clear lungs, and she only has an O2 saturation of 92% so DuoNeb was again given. She was also given 125 mg of IM Solu-Medrol. She should recheck with her regular doctor in the next 2 to 3 days. Departure - Departure Time of Disposition: 00:49 Disposition: Home, Self-Care 01 Clinical Impression: Cough Allergic rhinitis Qualifiers: Allergic rhinitis trigger: unspecified Allergic rhinitis seasonality: unspecified Qualified Code(s): J30.9 - Allergic rhinitis, unspecified - Discharge Information Instructions: Cough, Adult, [id number] Referrals: PCP,None [Primary Care Provider] - Forms: ED Department Discharge Care Plan Goals: Continue inhalers as directed as well as her Flonase. Recheck to discuss your medications later this week. Sepsis Event Note (ED) - Focused Exam Vital Signs: Vital Signs Temp Pulse Resp BP Pulse Ox 05/08/20 00:07 205.5 F H 77 18 125/85 92 L 05/07/20 23:48 96.4 F L 77 18 125/85 92 L - My Orders Last 24 Hours: My Active Orders 05/08/20 00:22 RT Aerosol Therapy [RC] ASDIRECTED - Assessment/Plan Last 24 Hours: My Active Orders 05/08/20 00:22 RT Aerosol Therapy [RC] ASDIRECTED
[2020-05-08] MEDS ORDERED: Albuterol/Ipratropium 3.0-0.5 MG/3 ML Neb Soln NEB ONE (00:21)
[2020-05-08] MEDS ORDERED: methylPREDNISolone Sodium Succinate 125 MG/2 ML SDV IM ONE (00:22)
== END 2020-05-08 00:49 | disposition home or self-care (01) ==
LOC: JP.ED 23:23
DX: J30.9 Allergic rhinitis, unspecified (principal); R05 Cough; E66.9 Obesity, unspecified; Z68.37 Body mass index [BMI] 37.0-37.9, adult; Z88.1 Allergy status to other antibiotic agents; Z88.6 Allergy status to analgesic agent; Z88.2 Allergy status to sulfonamides; Z79.899 Other long term (current) drug therapy; Z91.048 Other nonmedicinal substance allergy status
CPT/HCPCS: 94640; 96372; 99284; J2930; J7620-GY

== ENCOUNTER 2020-07-23 17:32 | Emergency (ER) | payer MEDICAID ==
--- NOTE | 2020-07-23 18:37 | EDM.PDOC ---
ED HPI GENERAL MEDICAL PROBLEM - General Chief Complaint: ENT Problem Stated Complaint: R EAR PAIN Time Seen by Provider: 07/23/20 18:15 Source of Information: Reports: Patient History Limitations: Reports: No Limitations - History of Present Illness INITIAL COMMENTS - FREE TEXT/NARRATIVE: 50-year-old female with right ear pain for the past 2 to 3 days. Apparently she was seen at the clinic and told she has "packed wax in her ear", and was given Zithromax. She was unable to fill the prescription and still having pain so she called the clinic today and they sent her to the emergency room. She has no fevers or chills, the pain radiates down into the right neck when she swallows. She otherwise feels fine. Onset: Gradual Duration: Day(s): (3 days) Location: Reports: Other (Right ear) Associated Symptoms: Reports: No Other Symptoms - Related Data Allergies Allergy/AdvReac Type Severity Reaction Status Date / Time cefuroxime [From Ceftin] Allergy Hives Verified 05/08/20 00:06 esomeprazole [From Nexium] Allergy Cannot Verified 05/08/20 00:06 Remember flaxseed Allergy Wheezing Verified 05/08/20 00:06 ibuprofen Allergy Itching Verified 05/08/20 00:06 stevioside [From Stevia] Allergy Wheezing Verified 05/08/20 00:06 Sulfa (Sulfonamide Allergy Hives Verified 05/08/20 00:06 Antibiotics) Home Meds: Home Meds Multivitamin [Multi-Vitamin Daily] 1 tab PO DAILY 08/30/18 [History] [place]-3S/DHA/Epa/Fish Oil/D3 [Fish Oil Gummies] 2 tab PO TID 01/14/19 [History] Fluticasone Propionate [Flonase Allergy Relief] 1 ml NS ASDIRECTED 01/26/19 [History] Cetirizine [ZyrTEC] 10 mg PO ASDIRECTED 01/03/20 [History] Levalbuterol Tartrate [Levalbuterol Tartrate Hfa] 1 - 2 puff INH ASDIRECTED 07/23/20 [History] Past Medical History HEENT History: Reports: Allergic Rhinitis, Cataract, Impaired Vision, Otitis Media Cardiovascular History: Reports: High Cholesterol Respiratory History: Reports: Asthma, Bronchitis, Recurrent Gastrointestinal History: Reports: GERD, Helicobacter Pylori Genitourinary History: Reports: None 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 Endocrine/Metabolic History: Reports: Obesity/BMI 30+ Dermatologic History: Reports: Cellulitis, Eczema - Infectious Disease History Infectious Disease History: Reports: Chicken Pox - Past Surgical History Head Surgeries/Procedures: Reports: None HEENT Surgical History: Reports: Cataract Surgery Cardiovascular Surgical History: Reports: None Respiratory Surgical History: Reports: None GI Surgical History: Reports: None Female Surgical History: Reports: Tubal Ligation Endocrine Surgical History: Reports: None 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 Surgical History: Reports: None Dermatological Surgical History: Reports: None Social & Family History - Family History Family Medical History: Noncontributory - Caffeine Use Caffeine Use: Reports: Coffee, Soda - Recreational Drug Use Recreational Drug Use: No ED ROS ENT - Review of Systems Review Of Systems: See Below Constitutional: Denies: Fever, Chills HEENT: Reports: Throat Pain (Some pain with swallowing) Respiratory: Denies: Shortness of Breath, Cough Cardiovascular: Denies: Chest Pain GI/Abdominal: Denies: Nausea, Vomiting Skin: Denies: Rash Neurological: Denies: Headache ED EXAM, ENT - Physical Exam Exam: See Below Exam Limited By: No Limitations General Appearance: Alert, No Apparent Distress Ears: Other (Both tympanic membranes are normal, the right ear however has an impacted clump of cerumen with hairs embedded in the wax stuck to the tympanic membrane. There is no pain with movement of the ear helix.) Respiratory/Chest: No Respiratory Distress, Lungs Clear Course - Vital Signs Last Recorded V/S: Last Vital Signs Temp 97.6 F 07/23/20 18:06 Pulse 77 07/23/20 18:06 Resp 16 07/23/20 18:06 BP 142/82 H 07/23/20 18:06 Pulse Ox 99 07/23/20 18:06 - Re-Assessments/Exams Free Text/Narrative Re-Assessment/Exam: 07/23/20 18:35 The ear was washed out and the wax removed. Exam after it was removed showed a completely normal ear canal and tympanic membrane. Patient was encouraged to just take ibuprofen as needed for the next couple of days and this should resolve, she also may have some mild eustachian tube dysfunction. If worsening she can recheck at any time. Departure - Departure Time of Disposition: 18:42 Disposition: Home, Self-Care 01 Clinical Impression: Ear pain, right, Impacted cerumen of right ear - Discharge Information Instructions: Earwax Buildup, Adult Referrals: PCP,None [Primary Care Provider] - Forms: ED Department Discharge Care Plan Goals: Take ibuprofen once or twice daily for the next few days and increase activity as tolerated. Consider rechecking in a couple of days if not improving satisfactorily, or return sooner if worsening. Sepsis Event Note (ED) - Evaluation Sepsis Screening Result: No Definite Risk - Focused Exam Vital Signs: Vital Signs Temp Pulse Resp BP Pulse Ox 07/23/20 18:06 97.6 F 77 16 142/82 H 99 07/23/20 17:47 97.6 F 77 16 142/82 H 99
== END 2020-07-23 18:43 | disposition home or self-care (01) ==
LOC: JP.ED 17:32
DX: H61.21 Impacted cerumen, right ear (principal); J45.909 Unspecified asthma, uncomplicated; E66.9 Obesity, unspecified; Z68.36 Body mass index [BMI] 36.0-36.9, adult; Z88.1 Allergy status to other antibiotic agents; Z88.6 Allergy status to analgesic agent; Z88.2 Allergy status to sulfonamides; Z88.8 Allergy status to other drugs, medicaments and biological substances; Z91.018 Allergy to other foods
CPT/HCPCS: 99282

== ENCOUNTER 2020-08-31 15:17 | Emergency (ER) | payer MEDICAID ==
--- NOTE | 2020-08-31 16:29 | EDM.PDOC ---
ED HPI GENERAL MEDICAL PROBLEM - General Chief Complaint: ENT Problem Stated Complaint: R EAR PAIN Time Seen by Provider: 08/31/20 16:23 Source of Information: Reports: Patient History Limitations: Reports: No Limitations - History of Present Illness INITIAL COMMENTS - FREE TEXT/NARRATIVE: Jacki is a 50 year old female whom presents to ER for left ear pain. Jacki has had severe intermittent allergies and has been taking zyrtec for 3yrs, using Flonase BID x 3 week and nasal irrigations x 2 days. Allergy symptoms and nasal congestion has not improved over the last 2-3 weeks with increased ear pressure and pain today. Jacki is plugging her nose and forcing her left ear to pop which increased pressure and pain. - Related Data Allergies Allergy/AdvReac Type Severity Reaction Status Date / Time cefuroxime [From Ceftin] Allergy Hives Verified 05/08/20 00:06 esomeprazole [From Nexium] Allergy Cannot Verified 05/08/20 00:06 Remember flaxseed Allergy Wheezing Verified 05/08/20 00:06 ibuprofen Allergy Itching Verified 05/08/20 00:06 stevioside [From Stevia] Allergy Wheezing Verified 05/08/20 00:06 Sulfa (Sulfonamide Allergy Hives Verified 05/08/20 00:06 Antibiotics) Home Meds: Home Meds Multivitamin [Multi-Vitamin Daily] 1 tab PO DAILY 08/30/18 [History] [place]-3S/DHA/Epa/Fish Oil/D3 [Fish Oil Gummies] 2 tab PO TID 01/14/19 [History] Fluticasone Propionate [Flonase Allergy Relief] 1 ml NS ASDIRECTED 01/26/19 [History] Cetirizine [ZyrTEC] 10 mg PO ASDIRECTED 01/03/20 [History] Levalbuterol Tartrate [Levalbuterol Tartrate Hfa] 1 - 2 puff INH ASDIRECTED 07/23/20 [History] Past Medical History HEENT History: Reports: Allergic Rhinitis, Cataract, Impaired Vision, Otitis Media Cardiovascular History: Reports: High Cholesterol Respiratory History: Reports: Asthma, Bronchitis, Recurrent Gastrointestinal History: Reports: GERD, Helicobacter Pylori Genitourinary History: Reports: 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 Endocrine/Metabolic History: Reports: Obesity/BMI 30+ Dermatologic History: Reports: Cellulitis, Eczema - Infectious Disease History Infectious Disease History: Reports: Chicken Pox - Past Surgical History Head Surgeries/Procedures: Reports: None HEENT Surgical History: Reports: Cataract Surgery Cardiovascular Surgical History: Reports: None Respiratory Surgical History: Reports: None GI Surgical History: Reports: None Female Surgical History: Reports: Tubal Ligation Endocrine Surgical History: Reports: None 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 Surgical History: Reports: None Dermatological Surgical History: Reports: None Social & Family History - Family History Family Medical History: Noncontributory - Caffeine Use Caffeine Use: Reports: Coffee, Soda ED ROS ENT - Review of Systems Review Of Systems: Comprehensive ROS is negative, except as noted in HPI. ED EXAM, ENT - Physical Exam Exam: See Below General Appearance: Alert, Mild Distress (right ear pressure ), Moderate Distress (right ) Eye Exam: Bilateral Eye: Normal Inspection Ears: Normal External Exam, Normal Canal, Normal TMs (left ), TM Fluid (right with air bubbles ). No: Auricular Tenderness, Mastoid Tenderness, TM Bulging, TM Dullness, TM Erythema, TM Blood, TM Vesicles Nose: Clear Rhinorrhea, Nasal Discharge Mouth/Throat: Normal Inspection, Normal Gums, Normal Oropharynx, Normal Teeth. No: Hoarse Voice, Throat Pain, Throat Swelling, Tongue Swelling Neck: Normal Inspection Respiratory/Chest: No Respiratory Distress, Lungs Clear, Normal Breath Sounds Cardiovascular: Normal Peripheral Pulses, Regular Rate, Rhythm Extremities: Normal Inspection, Normal Range of Motion Neurological: Alert, Oriented, Normal Cognition Psychiatric: Normal Affect, Normal Mood Skin: Warm, Dry, Intact, Normal Color Lymphatic: No Adenopathy Course - Vital Signs Last Recorded V/S: Last Vital Signs Temp 36.2 C 08/31/20 16:15 Pulse 89 08/31/20 16:15 Resp 18 08/31/20 16:15 BP 121/81 08/31/20 16:15 Pulse Ox 95 08/31/20 16:15 Departure - Departure Time of Disposition: 16:28 Disposition: Home, Self-Care 01 Clinical Impression: Eustachian tube dysfunction, Serous otitis media, Multiple environmental allergies - Discharge Information Instructions: Eustachian Tube Dysfunction, Allergies, Adult Referrals: Madalyn Talbert PA-C [Primary Care Provider] - Additional Instructions: 1. Continue Zyrtec 10mg every am and pm. 2. Continue Flonase nasal spray every am and pm. 3. Afrin nasal spray every am and pm x 3 days then do not use x 3-5 days. 4. ASA 325-650mg every 6 hours with food for inflammation and swelling. 5. Stop forcing air from back or your nose into your ear which is increasing pressure, pain and infection risk. Sepsis Event Note (ED) - Focused Exam Vital Signs: Vital Signs Temp Pulse Resp BP Pulse Ox 08/31/20 16:15 36.2 C 89 18 121/81 95
== END 2020-08-31 16:59 | disposition home or self-care (01) ==
LOC: JP.ED 15:17
DX: H65.91 Unspecified nonsuppurative otitis media, right ear (principal); H69.81 Other specified disorders of Eustachian tube, right ear; J30.2 Other seasonal allergic rhinitis; E66.9 Obesity, unspecified; Z68.38 Body mass index [BMI] 38.0-38.9, adult; Z88.8 Allergy status to other drugs, medicaments and biological substances; Z88.2 Allergy status to sulfonamides; Z91.018 Allergy to other foods; Z88.6 Allergy status to analgesic agent
CPT/HCPCS: 99283

== ENCOUNTER 2021-02-26 22:12 | Emergency (ER) | payer MEDICAID ==
--- NOTE | 2021-02-26 22:53 | EDM.PDOC ---
ED HPI GENERAL MEDICAL PROBLEM - General Chief Complaint: Allergic Reaction Stated Complaint: REACTION TO MEDS Time Seen by Provider: 02/26/21 22:29 Source of Information: Reports: Patient History Limitations: Reports: No Limitations - History of Present Illness INITIAL COMMENTS - FREE TEXT/NARRATIVE: Jacki is a 50-year-old female presenting to the ED for evaluation of possible medication reaction. Patient has been using her albuterol inhaler and has been on prednisone for an acute asthma exacerbation. She is currently staying at the [address] in [place] and over the last day or 2 she has had episodes of hot flashes. Patient is in the perimenopausal age, however, she has been attributing the symptoms to taking her prednisone. The patient sees a doctor at [place] who does not believe in treating menopause. The patient has not had any work-up for this in the past. She was concerned that the prednisone was the culprit but it is unlikely. She reports that she has episodes where she has she is drenching diaphoresis and feels very hot. She has had multiple episodes today. He does not seem to coexist with her taking her prednisone. - Related Data Allergies Allergy/AdvReac Type Severity Reaction Status Date / Time cefuroxime [From Ceftin] Allergy Hives Verified 08/31/20 16:53 esomeprazole [From Nexium] Allergy Cannot Verified 08/31/20 16:53 Remember flaxseed Allergy Wheezing Verified 08/31/20 16:53 ibuprofen Allergy Itching Verified 08/31/20 16:53 stevioside [From Stevia] Allergy Wheezing Verified 08/31/20 16:53 Sulfa (Sulfonamide Allergy Hives Verified 08/31/20 16:53 Antibiotics) Home Meds: Home Meds Multivitamin [Multi-Vitamin Daily] 1 tab PO DAILY 08/30/18 [History] [place]-3S/DHA/Epa/Fish Oil/D3 [Fish Oil Gummies] 2 tab PO TID 01/14/19 [History] Fluticasone Propionate [Flonase Allergy Relief] 1 ml NS ASDIRECTED 01/26/19 [History] Cetirizine [ZyrTEC] 10 mg PO ASDIRECTED 01/03/20 [History] Levalbuterol Tartrate [Levalbuterol Tartrate Hfa] 1 - 2 puff INH ASDIRECTED 07/23/20 [History] Past Medical History HEENT History: Reports: Allergic Rhinitis, Cataract, Impaired Vision, Otitis Media Cardiovascular History: Reports: High Cholesterol Respiratory History: Reports: Asthma, Bronchitis, Recurrent Gastrointestinal History: Reports: GERD, Helicobacter Pylori Genitourinary History: Reports: 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 Endocrine/Metabolic History: Reports: Obesity/BMI 30+ Dermatologic History: Reports: Cellulitis, Eczema - Infectious Disease History Infectious Disease History: Reports: Chicken Pox - Past Surgical History Head Surgeries/Procedures: Reports: None HEENT Surgical History: Reports: Cataract Surgery Cardiovascular Surgical History: Reports: None Respiratory Surgical History: Reports: None GI Surgical History: Reports: None Female Surgical History: Reports: Tubal Ligation Endocrine Surgical History: Reports: None 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 Surgical History: Reports: None Dermatological Surgical History: Reports: None Social & Family History - Family History Family Medical History: No Pertinent Family History - Tobacco Use Tobacco Use Status *Q: Former Tobacco User Years of Tobacco use: 25 Used Tobacco, but Quit: Yes Month/Year Tobacco Last Used: 03/11 - Caffeine Use Caffeine Use: Reports: Coffee, Soda, Tea - Recreational Drug Use Recreational Drug Use: No ED ROS ALLERGIC REACTION - Review of Systems Review Of Systems: See Below Constitutional: Reports: Diaphoresis, Other (Hot flashes) HEENT: Reports: No Symptoms Respiratory: Reports: No Symptoms Cardiovascular: Reports: No Symptoms Endocrine: Reports: No Symptoms GI/Abdominal: Reports: No Symptoms : Reports: No Symptoms 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: Reports: No Symptoms Skin: Reports: No Symptoms Neurological: Reports: No Symptoms Psychiatric: Reports: No Symptoms Hematologic/Lymphatic: Reports: No Symptoms Immunologic: Reports: No Symptoms ED EXAM GENERAL NO PERIP PULSE - Physical Exam Exam: See Below Exam Limited By: No Limitations General Appearance: Alert, No Apparent Distress Eye Exam: Bilateral Eye: EOMI, PERRL Throat/Mouth: Normal Inspection, Normal Lips, Normal Oropharynx, Normal Voice, No Airway Compromise Head: Atraumatic, Normocephalic Neck: Normal Inspection, Supple Respiratory/Chest: No Respiratory Distress, Lungs Clear, Normal Breath Sounds Cardiovascular: Normal Peripheral Pulses, Regular Rate, Rhythm, No Murmur GI/Abdominal: Normal Bowel Sounds, Soft, Non-Tender Back Exam: Normal Inspection Extremities: Normal Inspection Neurological: Alert, Oriented, Normal Cognition, No Motor/Sensory Deficits Psychiatric: Normal Affect, Normal Mood Skin Exam: Warm, Dry, Intact, Normal Color Lymphatic: No Adenopathy Course - Vital Signs Last Recorded V/S: Last Vital Signs Temp 36.8 C 02/26/21 22:31 Pulse 75 02/26/21 22:31 Resp 16 02/26/21 22:31 BP 152/86 H 02/26/21 22:31 Pulse Ox 96 02/26/21 22:31 - Orders/Labs/Meds Orders: Active Orders 24 hr Category Date Time Status COMPREHENSIVE METABOLIC PN,CMP [CHEM] Stat Lab 02/26/21 22:57 Received Labs: Laboratory Tests 02/26/21 02/26/21 Range/Units 22:57 23:04 WBC 6.6 (4.5-11.0) K/uL RBC 4.23 (3.30-5.50) M/uL Hgb 13.5 (12.0-15.0) g/dL Hct 39.4 (36.0-48.0) % MCV 93 (80-98) fL MCH 32 H (27-31) pg MCHC 34 (32-36) % Plt Count 291 (150-400) K/uL Neut % (Auto) 84 H (36-66) % Lymph % (Auto) 12 L (24-44) % [place] % (Auto) 4 (2-6) % Eos % (Auto) 0 L (2-4) % Baso % (Auto) 1 (0-1) % Urine Color Yellow (YELLOW) Urine Appearance Clear (CLEAR) Urine pH 5.5 (5.0-8.0) Ur Specific [place] 1.020 (1.008-1.030) Urine Protein Negative (NEGATIVE) mg/dL Urine Glucose (UA) Negative (NEGATIVE) mg/dL Urine Ketones Negative (NEGATIVE) mg/dL Urine Occult Blood Trace-intact H (NEGATIVE) Urine Nitrite Negative (NEGATIVE) Urine Bilirubin Negative (NEGATIVE) Urine Urobilinogen 0.2 (0.2-1.0) EU/dL Ur Leukocyte Esterase Negative (NEGATIVE) Urine RBC 0-5 (0-5) Urine WBC 0-5 (0-5) Ur Epithelial Cells Not seen Amorphous Sediment Not seen Urine Bacteria Not seen Urine Mucus Not seen - Re-Assessments/Exams Free Text/Narrative Re-Assessment/Exam: 02/26/21 23:25 I reviewed the patient's labs showing a normal CBC, urinalysis, and comprehensive metabolic panel. Her symptoms are more consistent with perimenopausal hot flashes then a medication reaction. She should follow-up with her primary care provider for further evaluation including assessing her luteinizing hormone, follicular stimulating hormone, and estrogen levels which are beyond the scope of the ED. Reassured her that this does not appear to be due to her prednisone use. At time she is suitable for discharge home in satisfactory condition. Departure - Departure Time of Disposition: 23:25 Disposition: Home, Self-Care 01 Clinical Impression: Hot flashes - Discharge Information Referrals: PCP,None [Primary Care Provider] - Forms: ED Department Discharge Care Plan Goals: Your intermittent episodes of hot flashes may be due to the onset of menopause. It would be rare for this to be caused by prednisone usually associated with the time that you take the medication rather than sporadically throughout the day. I would recommend following up with your primary care provider to check your luteinizing hormone, follicular stimulating hormone, and estrogen levels to evaluate for perimenopausal onset. You may consider using black cohosh tea to try to mitigate your hot flashes. This is usually available at any of the local groceries. Your work-up today to demonstrate any acute findings to suggest an infection. Sepsis Event Note (ED) - Evaluation Sepsis Screening Result: No Definite Risk - Focused Exam Vital Signs: Vital Signs Temp Pulse Resp BP Pulse Ox 02/26/21 22:31 36.8 C 75 16 152/86 H 96 02/26/21 22:27 36.8 C 75 16 152/86 H 96 - Problem List & Annotations (1) Hot flashes SNOMED Code(s): 139877469 Code(s): R23.2 - FLUSHING Status: Acute Priority: Medium Current Visit: Yes - Problem List Review Problem List Initiated/Reviewed/Updated: Yes - My Orders Last 24 Hours: My Active Orders 02/26/21 22:57 COMPREHENSIVE METABOLIC PN,CMP [CHEM] Stat - Assessment/Plan Last 24 Hours: My Active Orders 02/26/21 22:57 COMPREHENSIVE METABOLIC PN,CMP [CHEM] Stat
== END 2021-02-26 23:42 | disposition home or self-care (01) ==
LOC: JP.ED 22:12
DX: N95.1 Menopausal and female climacteric states (principal); E66.9 Obesity, unspecified; J45.909 Unspecified asthma, uncomplicated; Z79.899 Other long term (current) drug therapy; Z87.891 Personal history of nicotine dependence; Z88.2 Allergy status to sulfonamides; Z88.1 Allergy status to other antibiotic agents; Z88.6 Allergy status to analgesic agent; Z91.018 Allergy to other foods; Z88.3 Allergy status to other anti-infective agents; Z68.37 Body mass index [BMI] 37.0-37.9, adult
CPT/HCPCS: 36415; 80053; 81001; 85025; 99283; 99284

== ENCOUNTER 2021-07-24 18:20 | Emergency (ER) | payer MEDICAID | END 2021-07-24 19:05 | disposition left against medical advice (07) | LOC: JP.ED 18:20 | DX: R06.02 Shortness of breath (principal); Z53.21 Procedure and treatment not carried out due to patient leaving prior to being seen by health care provider ==

== ENCOUNTER 2023-09-01 10:01 | Emergency (ER) | payer MEDICAID | END 2023-09-01 10:55 | disposition left against medical advice (07) | LOC: JP.ED 10:01 | DX: Z53.21 Procedure and treatment not carried out due to patient leaving prior to being seen by health care provider (principal) ==